=== PATIENT | male | born 1975 | race Two or more races ===

== ENCOUNTER 2017-11-15 21:37 | Inpatient (IN) | payer SELFPAY ==
[~2017-11-15] VITALS: Ht 195.6 cm; Wt 97.5 kg
[2017-11-15] MEDS ORDERED: CLON0.2T PO (21:59)
[2017-11-15] MEDS ORDERED: ULTRAM (21:59)
[2017-11-15] MEDS ORDERED: ENOXAPARIN SODIUM 100 MG/ML DISP.SYRIN SQ ONE ×2 (23:30→23:37)
[2017-11-15] MEDS ORDERED: HYDROMORPHONE 1 MG/1 ML DISP.SYRIN IV ONE (23:45)
[2017-11-15] MEDS ORDERED: ONDANSETRON IV *ER 4 MG/2 ML VIAL IV ONE (23:45)
[2017-11-15] MEDS ORDERED: ONDANSETRON 4 MG/2 ML VIAL ONE (23:46)
[2017-11-15] MEDS ORDERED: HYDROMORPHONE 2 MG/1 ML DISP.SYRIN ONE (23:46)
[2017-11-15 23:51] LABS: BASOPHILS % (AUTO) 0.5 % (0.0-2.0); EOSINOPHILS # (AUTO) 0.1 K/uL (0.0-0.7); EOSINOPHILS % (AUTO) 2.4 % (0.0-7.0); HEMOGLOBIN 10.9 g/dL (12.5-16.3); LYMPHOCYTES # (AUTO) 1.5 K/uL (20.0-40.0); LYMPHOCYTES % (AUTO) 25.9 % (20.5-51.5); MEAN CORPUSCULAR HEMOGLOBIN 32.8 uug (23.8-33.4); MEAN CORPUSCULAR HGB CONC 35 g/dL (32.5-36.3); MEAN CORPUSCULAR VOLUME 93.2 fL (73.0-96.2); MONOCYTES # (AUTO) 0.6 K/uL (2.0-10.0); MONOCYTES % (AUTO) 11.4 % (0.0-11.0); NEUTROPHILS # (AUTO) 3.3 K/uL (1.8-8.9); NEUTROPHILS % (AUTO) 59.8 % (38.5-71.5); PLATELET COUNT (AUTO) 156 K/uL (152-348); RED BLOOD CELL COUNT(AUTO) 3.32 MIL/uL (4.06-5.63); WHITE BLOOD COUNT (AUTO) 5.6 K/uL (3.6-10.2)
[2017-11-16 00:06] LABS: CREATININE 0.9 mg/dL (0.6-1.3); POTASSIUM 3.3 mmol/L (3.5-5.1)
[2017-11-16] MEDS ORDERED: CLON0.2T PO ×2 (00:14→00:16)
[2017-11-16 00:17] LABS: BILIRUBIN,TOTAL 0.4 mg/dL (0.2-1.0); TOTAL PROTEIN, SERUM 6.5 g/dL (6.4-8.2)
[2017-11-16 00:40] VITALS: BP 120/60
[2017-11-16] MEDS ORDERED: ZOLPIDEM 5 MG TABLET PO PRN (01:00)
[2017-11-16] MEDS ORDERED: ACETAMINOPHEN 325 MG TABLET PO PRN (01:00)
[2017-11-16] MEDS ORDERED: ONDANSETRON 4 MG/2 ML VIAL IV PRN (01:00)
[2017-11-16] MEDS ORDERED: Z GUARD REMEDY PASTE 57 GM TUBE TOP PRN (01:00)
[2017-11-16] MEDS ORDERED: MAGNESIUM HYDROXIDE 30 ML LIQUID UDC PO PRN (01:00)
[2017-11-16] MEDS: HYDROCODONE/APAP 5-325MG TABLET PO PRN ×2 (03:50→13:42)
[2017-11-16 04:00] VITALS: BP 115/60
[2017-11-16 06:36] LABS: BASOPHILS % (AUTO) 0.5 % (0.0-2.0); EOSINOPHILS # (AUTO) 0.1 K/uL (0.0-0.7); EOSINOPHILS % (AUTO) 2.8 % (0.0-7.0); HEMOGLOBIN 10.8 g/dL (12.5-16.3); LYMPHOCYTES # (AUTO) 1.8 K/uL (20.0-40.0); LYMPHOCYTES % (AUTO) 36.9 % (20.5-51.5); MEAN CORPUSCULAR HGB CONC 35 g/dL (32.5-36.3); MEAN CORPUSCULAR VOLUME 94.8 fL (73.0-96.2); MONOCYTES # (AUTO) 0.5 K/uL (2.0-10.0); NEUTROPHILS # (AUTO) 2.5 K/uL (1.8-8.9); NEUTROPHILS % (AUTO) 49.8 % (38.5-71.5); PLATELET COUNT (AUTO) 166 K/uL (152-348); RED BLOOD CELL COUNT(AUTO) 3.27 MIL/uL (4.06-5.63)
[2017-11-16 06:37] LABS: PHOSPHOROUS 4.1 mg/dL (2.5-4.9); POTASSIUM 3.3 mmol/L (3.5-5.1)
[2017-11-16] MEDS ORDERED: ENOXAPARIN SODIUM 100 MG/ML DISP.SYRIN SQ SCH (09:00)
[2017-11-16] MEDS: ENOXAPARIN SODIUM 100 MG/ML DISP.SYRIN SQ SCH ×2 (09:29→20:49)
[2017-11-16 11:04] VITALS: BP 120/63
[2017-11-16] MEDS ORDERED: POTASSIUM CHLORIDE 20 MEQ TAB.PRT.SR PO ONE (14:30)
[2017-11-16] MEDS ORDERED: HYDROMORPHONE 1 MG/1 ML DISP.SYRIN IV PRN (15:15)
[2017-11-16 15:20] VITALS: BP 102/62
[2017-11-16] MEDS: MORPHINE SULFATE 4 MG/1 ML DISP.SYRIN IV PRN ×2 (16:30→20:50)
[2017-11-16 20:00] VITALS: BP 124/65
[2017-11-17] VITALS: BP 120/67
[2017-11-17] MEDS: MORPHINE SULFATE 4 MG/1 ML DISP.SYRIN IV PRN ×6 (01:11→23:58)
[2017-11-17 05:39] VITALS: BP 115/56
[2017-11-17 06:54] LABS: CREATININE 0.9 mg/dL (0.6-1.3)
[2017-11-17] MEDS: ENOXAPARIN SODIUM 100 MG/ML DISP.SYRIN SQ SCH ×2 (08:42→20:31)
[2017-11-17 10:38] LABS: BASOPHILS # (AUTO) 0.1 K/uL (0.0-8.0); BASOPHILS % (AUTO) 1.4 % (0.0-2.0); EOSINOPHILS # (AUTO) 0.1 K/uL (0.0-0.7); EOSINOPHILS % (AUTO) 2.8 % (0.0-7.0); HEMATOCRIT 34.1 % (36.7-47.1); HEMOGLOBIN 11.7 g/dL (12.5-16.3); LYMPHOCYTES # (AUTO) 1.6 K/uL (20.0-40.0); LYMPHOCYTES % (AUTO) 39.9 % (20.5-51.5); MEAN CORPUSCULAR HEMOGLOBIN 32.7 uug (23.8-33.4); MEAN CORPUSCULAR HGB CONC 34 g/dL (32.5-36.3); MEAN CORPUSCULAR VOLUME 94.9 fL (73.0-96.2); MONOCYTES # (AUTO) 0.4 K/uL (2.0-10.0); MONOCYTES % (AUTO) 10.7 % (0.0-11.0); NEUTROPHILS # (AUTO) 1.8 K/uL (1.8-8.9); NEUTROPHILS % (AUTO) 45.2 % (38.5-71.5); PLATELET COUNT (AUTO) 183 K/uL (152-348); RED BLOOD CELL COUNT(AUTO) 3.59 MIL/uL (4.06-5.63); WHITE BLOOD COUNT (AUTO) 4.1 K/uL (3.6-10.2)
[2017-11-17 11:40] VITALS: BP 129/70
[2017-11-17] MEDS ORDERED: TRAM50TA PO (11:59)
[2017-11-17 15:44] VITALS: BP 123/67
[2017-11-17 20:17] VITALS: BP 110/69
[2017-11-17] MEDS: BACITRACIN/POLYMYXIN B OINT 15 GM TUBE TOP SCH (22:10)
[2017-11-18 00:25] VITALS: BP 115/69
[2017-11-18 04:00] VITALS: BP 120/60
[2017-11-18] MEDS: MORPHINE SULFATE 4 MG/1 ML DISP.SYRIN IV PRN ×4 (04:59→13:41)
[2017-11-18] MEDS ORDERED: PANTOPRAZOLE SODIUM 40 MG TABLET.DR PO SCH (07:00)
[2017-11-18 07:11] LABS: BASOPHILS % (AUTO) 1.2 % (0.0-2.0); EOSINOPHILS # (AUTO) 0.1 K/uL (0.0-0.7); EOSINOPHILS % (AUTO) 3.2 % (0.0-7.0); LYMPHOCYTES # (AUTO) 1.3 K/uL (20.0-40.0); LYMPHOCYTES % (AUTO) 33.7 % (20.5-51.5); MEAN CORPUSCULAR HEMOGLOBIN 32.3 uug (23.8-33.4); MEAN CORPUSCULAR HGB CONC 34 g/dL (32.5-36.3); MEAN CORPUSCULAR VOLUME 94.6 fL (73.0-96.2); MONOCYTES # (AUTO) 0.4 K/uL (2.0-10.0); MONOCYTES % (AUTO) 10.6 % (0.0-11.0); NEUTROPHILS % (AUTO) 51.3 % (38.5-71.5); RED BLOOD CELL COUNT(AUTO) 4.07 MIL/uL (4.06-5.63); WHITE BLOOD COUNT (AUTO) 3.9 K/uL (3.6-10.2)
[2017-11-18 07:28] LABS: HEMATOCRIT 38.5 % (36.7-47.1); HEMOGLOBIN 13.1 g/dL (12.5-16.3); PLATELET COUNT (AUTO) 235 K/uL (152-348)
[2017-11-18 07:46] LABS: BILIRUBIN,TOTAL 0.3 mg/dL (0.2-1.0); PHOSPHOROUS 3.7 mg/dL (2.5-4.9); POTASSIUM 4.2 mmol/L (3.5-5.1)
[2017-11-18 07:54] LABS: IRON, SERUM 61 ug/dL (50-175)
[2017-11-18 08:10] LABS: FERRITIN 136 ng/mL (26-388)
[2017-11-18 08:14] LABS: *OCCULT BLOOD STOOL NEGATIVE (NEGATIVE)
[2017-11-18] MEDS: ENOXAPARIN SODIUM 100 MG/ML DISP.SYRIN SQ SCH (09:07)
[2017-11-18] MEDS: BACITRACIN/POLYMYXIN B OINT 15 GM TUBE TOP SCH (09:09)
[2017-11-18 11:31] VITALS: BP 130/69
[2017-11-18] MEDS ORDERED: HYDR-3326 PO (12:34)
[2017-11-18] MEDS ORDERED: BACI15OI3 TOP ×2 (12:34→12:44)
== END 2017-11-18 14:40 | disposition home or self-care (01) | DRG 197 ==
LOC: ER 21:39 → TELE 11-16 00:33
PROVIDERS: ADMIT Nurse Practitioner Acute Care; ATTEND Nurse Practitioner Acute Care
DX: I82.412 Acute embolism and thrombosis of left femoral vein (principal); D68.59 Other primary thrombophilia; E44.0 Moderate protein-calorie malnutrition; E88.09 Other disorders of plasma-protein metabolism, not elsewhere classified; D63.8 Anemia in other chronic diseases classified elsewhere; E87.6 Hypokalemia; I80.02 Phlebitis and thrombophlebitis of superficial vessels of left lower extremity; S99.921A Unspecified injury of right foot, initial encounter; Z88.6 Allergy status to analgesic agent; Z91.013 Allergy to seafood; Z86.718 Personal history of other venous thrombosis and embolism; Z86.711 Personal history of pulmonary embolism; Z79.899 Other long term (current) drug therapy; Z68.25 Body mass index [BMI] 25.0-25.9, adult; Z91.120 Patient's intentional underdosing of medication regimen due to financial hardship; I83.892 Varicose veins of left lower extremity with other complications; R74.0 Nonspecific elevation of levels of transaminase and lactic acid dehydrogenase [LDH]; L60.9 Nail disorder, unspecified; M79.672 Pain in left foot; M79.671 Pain in right foot; V03.90XA Pedestrian on foot injured in collision with car, pick-up truck or van, unspecified whether traffic or nontraffic accident, initial encounter; Y92.89 Other specified places as the place of occurrence of the external cause; S99.922A Unspecified injury of left foot, initial encounter
CPT/HCPCS: 36415; 73610; 73630; 83550; 83735; 84100; 84443; 85025; 85610; A4663; J1170; J1650; J2270; J2405

== ENCOUNTER 2018-05-13 15:13 | Emergency (ER) | payer MEDICAID ==
[~2018-05-13] VITALS: Ht 193 cm; Wt 104.3 kg
[~2018-05-13 15:13] MED LIST: BACI15OI3 TOP; CLON0.2T PO; HYDR-3326 PO
[2018-05-13 15:33] LABS: BASOPHILS % (AUTO) 0.5 % (0.0-2.0); EOSINOPHILS % (AUTO) 0.1 % (0.0-7.0); HEMATOCRIT 37.7 % (36.7-47.1); HEMOGLOBIN 13.2 g/dL (12.5-16.3); LYMPHOCYTES # (AUTO) 1.3 K/uL (20.0-40.0); LYMPHOCYTES % (AUTO) 13.9 % (20.5-51.5); MEAN CORPUSCULAR HEMOGLOBIN 32.8 uug (23.8-33.4); MEAN CORPUSCULAR HGB CONC 35 g/dL (32.5-36.3); MEAN CORPUSCULAR VOLUME 93.7 fL (73.0-96.2); MONOCYTES # (AUTO) 0.9 K/uL (2.0-10.0); MONOCYTES % (AUTO) 9.4 % (0.0-11.0); NEUTROPHILS # (AUTO) 7.3 K/uL (1.8-8.9); NEUTROPHILS % (AUTO) 76.1 % (38.5-71.5); PLATELET COUNT (AUTO) 248 K/uL (152-348); RED BLOOD CELL COUNT(AUTO) 4.02 MIL/uL (4.06-5.63); WHITE BLOOD COUNT (AUTO) 9.6 K/uL (3.6-10.2)
[2018-05-13 15:41] LABS: CREATININE 1.9 mg/dL (0.6-1.3)
[2018-05-13] MEDS ORDERED: IBUPROFEN 800 MG TABLET ONE (15:51)
[2018-05-13] MEDS ORDERED: ENOXAPARIN SODIUM 100 MG/ML DISP.SYRIN SQ ONE (16:15)
[2018-05-13] MEDS ORDERED: ACETAMINOPHEN ES 500 MG TABLET PO ONE (16:15)
--- NOTE | 2018-05-13 16:22 | NUR ---
Patient discharged to home in stable conditon. Written and verbal after care instructions given. Patient verbalizes understanding of instructions.
[2018-05-13] MEDS ORDERED: ENOXAPARIN SODIUM 60 MG/0.6 ML DISP.SYRIN SQ ONE (16:31)
[2018-05-13] MEDS ORDERED: ENOXAPARIN SODIUM 40 MG/0.4 ML DISP.SYRIN SQ ONE (16:31)
[2018-05-13] MEDS ORDERED: ACETAMINOPHEN ES 500 MG TABLET ONE (16:36)
--- NOTE | 2018-05-13 16:46 | NUR ---
PT ROJAS RETURNED TO PT BY [facility]
[2018-05-13 16:47] VITALS: BP 138/88
== END 2018-05-13 16:52 | disposition home or self-care (01) ==
LOC: ER 15:15
DX: I82.4Z2 Acute embolism and thrombosis of unspecified deep veins of left distal lower extremity (principal); Z88.5 Allergy status to narcotic agent; Z88.8 Allergy status to other drugs, medicaments and biological substances; Z91.013 Allergy to seafood; Z91.041 Radiographic dye allergy status
CPT/HCPCS: 36415; 80048; 85025; 85730; 93970; 96372; 99285; A4663; A9150; J1650 ×2